=== PATIENT | female | born 1970 | race Caucasian/White ===

== ENCOUNTER 2020-01-02 06:47 | Inpatient (IN) | payer OTHER ==
[2020-01-02] VITALS (14 sets, daily range): BP systolic 122–163; BP diastolic 61–91
[~2020-01-02] VITALS: Ht 170.2 cm; Wt 87.1 kg
[2020-01-02 07:13] LABS: URINE BLOOD 1+ (Negative); URINE CLARITY CLEAR; URINE COLOR YELLOW; URINE GLUCOSE-RANDOM 2+ (Negative); URINE LEUKOCYTES-REFLEX NEGATIVE (Negative); URINE NITRITE-REFLEX NEGATIVE (Negative); URINE PROTEIN TRACE (Negative); URINE SPECIFIC GRAVITY >= 1.030 (1.005-1.030); URINE UROBILINOGEN 0.2 E.U./dl (0.2-1.0)
[2020-01-02 07:15] LABS: ACETEST (KETONE CONFIRMATORY) Large (Negative); ICTOTEST (BILI CONFIRMATORY) Negative (Negative); URINE BILIRUBIN 1+ (Negative); URINE KETONES 3+ (Negative)
[2020-01-02 07:27] LABS: BACTERIA-REFLEX 1-9 Few /HPF (None Seen); CRYSTALS None Seen /LPF (None Seen); HYALINE CASTS 0-3 Few /LPF (None Seen); MUCUS None Seen strn/LPF (None Seen); SQUAMOUS 0-3 Few /LPF (0-3); URINE RBC 3-10 Few /HPF (0-2); URINE WBC-REFLEX 0-5 Rare /HPF (0-5)
[2020-01-02 07:37] LABS: HEMATOCRIT 50.9 % (37.0-47.0); HEMOGLOBIN 16.6 gm/dL (12.0-15.0); MCH 29.8 pg (26.0-34.0); MCHC 32.5 g/dL (28.0-37.0); MCV 91.5 fL (80.0-100.0); NUCLEATED RBCS 0 /100WBC; PLATELET COUNT* 433 thou/uL (150-400); RBC 5.56 mil/uL (4.20-5.00); RDW-CV 12.9 % (10.5-14.5); WBC 20.9 thou/uL (4.0-11.0)
[2020-01-02 08:02] LABS: ALBUMIN 3.8 g/dL (3.4-5.0); CALCIUM 8.6 mg/dL (8.5-10.1); POTASSIUM 3.9 mmol/L (3.5-5.1); TOTAL BILIRUBIN 1.2 mg/dL (<0.1-1.0); TOTAL PROTEIN 8.4 g/dL (6.4-8.2)
[2020-01-02 08:39] LABS: ABSOLUTE LYMPHOCYTES 1.3 thou/uL (0.8-5.3); ABSOLUTE MONOCYTES 1.3 thou/uL (0.0-1.2); ABSOLUTE NEUTROPHILS 18.4 thou/uL (1.6-8.1); PLATELET ESTIMATE ADEQUATE
[2020-01-02 08:54] LABS: BE -19.7 mmol/L (-2 to +3); PCO2 VENOUS 21.8 mmHg (41.0-51.0); PO2 VENOUS 84.8 mmHg (35.0-45.0)
[2020-01-02 10:40] LABS: ABSOLUTE BASOPHILS 0.1 thou/uL (0.0-0.2); ABSOLUTE MONOCYTES 1.7 thou/uL (0.0-1.2); ABSOLUTE NEUTROPHILS 17.1 thou/uL (1.6-8.1); BASOPHILS 0.3 %; HEMATOCRIT 48.6 % (37.0-47.0); HEMOGLOBIN 16.1 gm/dL (12.0-15.0); LYMPHOCYTES 9.6 %; MCH 29.4 pg (26.0-34.0); MCHC 33.2 g/dL (28.0-37.0); MCV 88.5 fL (80.0-100.0); MONOCYTES 8.1 %; MPV 7.6 fl. (7.2-11.1); NUCLEATED RBCS 0 /100WBC; PLATELET COUNT* 370 thou/uL (150-400); RBC 5.49 mil/uL (4.20-5.00); RDW-CV 12.4 % (10.5-14.5); WBC 20.8 thou/uL (4.0-11.0)
[2020-01-02 13:59] LABS: CREATININE 0.9 mg/dL (0.6-1.3); POTASSIUM 3.1 mmol/L (3.5-5.1)
[2020-01-02 14:02] LABS: ALBUMIN 3.1 g/dL (3.4-5.0); MAGNESIUM 2.3 mg/dL (1.8-2.4)
--- NOTE | 2020-01-02 16:32 | NUR ---
RECIEVED PT FROM ER AT 1115H, CONNETED TO OIL AND GAS SUPERINTENDENT. TACHYCARDIA NOTED AND PT WAS DROWSY. ON INSULIN DRIP AT 1IU/HR NOW. PT VOMITED ONCE AND PRN MED GIVEN FOR N/V. INSTRUCTED NOT TO DRINK WATER FOR NOW AND MOUTH WASHED GIVEN.NO RESPIRATORY DISTRESS AND NO PAIN NOTED. PT STATED, SHE'S STILL NOT FELLING WELL. STILL HAVE SORE THROAT PROBABLY DUE TO HER VOMITING FOR DAYS. CONTINUE MONITORING AND TOWARD GOALS.
[2020-01-02 18:15] LABS: CALCIUM 7.7 mg/dL (8.5-10.1); CREATININE 0.9 mg/dL (0.6-1.3)
[2020-01-02 18:18] LABS: ALBUMIN 2.8 g/dL (3.4-5.0); MAGNESIUM 2.5 mg/dL (1.8-2.4); PHOSPHORUS* 1.5 mg/dL (2.5-4.9); POTASSIUM 4.7 mmol/L (3.5-5.1)
[2020-01-02 21:20] LABS: CALCIUM 7.8 mg/dL (8.5-10.1); CREATININE 0.9 mg/dL (0.6-1.3); POTASSIUM 4.2 mmol/L (3.5-5.1)
[2020-01-02 21:23] LABS: ALBUMIN 2.8 g/dL (3.4-5.0); MAGNESIUM 2.5 mg/dL (1.8-2.4); PHOSPHORUS* 1.2 mg/dL (2.5-4.9)
[2020-01-02 23:26] LABS: URINE BILIRUBIN NEGATIVE (Negative); URINE BLOOD TRACE (Negative); URINE CLARITY CLEAR; URINE COLOR YELLOW; URINE GLUCOSE-RANDOM 2+ (Negative); URINE KETONES 3+ (Negative); URINE LEUKOCYTES 1+ (Negative); URINE NITRITE POSITIVE (Negative); URINE PROTEIN 1+ (Negative); URINE UROBILINOGEN 0.2 E.U./dl (0.2-1.0)
[2020-01-02 23:34] LABS: AMP/METHAMP Negative (Negative); BARBITURATES Negative (Negative); BENZODIAZEPINES Negative (Negative); COCAINE Negative (Negative); METHADONE Negative (Negative); OPIATES Negative (Negative); PCP Negative (Negative); THC Negative (Negative)
[2020-01-02 23:41] LABS: BACTERIA >30 Many /HPF (None Seen); COARSE GRANULAR CASTS 0-3 Few /LPF (None Seen); CRYSTALS None Seen /LPF (None Seen); FINE GRANULAR CASTS 0-3 Few /LPF (None Seen); MUCUS 4-6 Moderate strn/LPF (None Seen); SQUAMOUS 0-3 Few /LPF (0-3); URINE WBC >25 Many /HPF (0-5); WBC CLUMPS Few (None Seen)
[2020-01-03] VITALS (14 sets, daily range): BP systolic 112–139; BP diastolic 62–75
[2020-01-03 01:18] LABS: ABSOLUTE BASOPHILS 0.1 thou/uL (0.0-0.2); ABSOLUTE LYMPHOCYTES 1.8 thou/uL (0.8-5.3); ABSOLUTE MONOCYTES 1.7 thou/uL (0.0-1.2); ABSOLUTE NEUTROPHILS 9.5 thou/uL (1.6-8.1); BASOPHILS 0.9 %; LYMPHOCYTES 13.5 %; MCH 29.7 pg (26.0-34.0); MONOCYTES 12.7 %; MPV 7.4 fl. (7.2-11.1); NUCLEATED RBCS 0 /100WBC; POLYS 72.9 %; RDW-CV 12.2 % (10.5-14.5)
[2020-01-03 01:30] LABS: ALBUMIN 2.6 g/dL (3.4-5.0); ANION GAP 15 mmol/L (7-16); BUN 16 mg/dL (7-18); CALCIUM 7.1 mg/dL (8.5-10.1); CHLORIDE 104 mmol/L (98-107); CHOLESTEROL 207 mg/dL (<200); CO2 17 mmol/L (21-32); CREATININE 0.9 mg/dL (0.6-1.3); GLUCOSE 213 mg/dL (70-99); HDL CHOLESTEROL 38 mg/dL (>40); LDL CHOLESTEROL 128 mg/dL (<100); PHOSPHORUS* 2.3 mg/dL (2.5-4.9); POTASSIUM 3.7 mmol/L (3.5-5.1); SODIUM 136 mmol/L (136-145); TC:HDL 5.4 Ratio (Not establshd); TRIGLYCERIDE 208 mg/dL (<150); VLDL 42 mg/dL (<40)
[2020-01-03 01:32] LABS: PLATELET COUNT* 274 thou/uL (150-400)
[2020-01-03 02:12] LABS: SERUM ASSESSMENT CLEAR
--- NOTE | 2020-01-03 06:21 | NUR ---
Pt reports she slept overnight despite frequent BG checks. Pt up to BSC to void, tolerated well. VSS. Remains on insulin gtt, currently at 9 units/hr; BG low 200s with D5 0.45 NS running at 250 ml/hr. No complaints of nausea overnight, but reports she still has sore throat. Will continue to monitor.
--- NOTE | 2020-01-03 12:48 | NUR ---
REPORT CALLED TO CASSIDY IN ICU
--- NOTE | 2020-01-03 13:09 | NUR ---
PT TRANSFERRED TO ROOM 106 AT THIS TIME. REPORT RECEIVED FROM PREVIOUS RN. PT ORIENTED TO ROOM. NO OTHER CONCERNS AT THIS TIME.
--- NOTE | 2020-01-03 16:05 | NUR ---
PT SOMEWHAT PROGRESSING TOWARDS GOALS THIS SHIFT. DKA PROTOCOL DC'D AND INSULIN GTT DC'D. PT ON SSI WITH LONG ACTING INSULIN TO MAINTAIN BLOOD SUGARS. NOT TOLERATING DIET WELL AT THIS TIME. ZOFRAN ADMINISTERED FOR NAUSEA. NO OTHER CONCERNS AT THIS TIME. CLWR. WCTM.
[2020-01-04 02:06] LABS: GLYCOHEMOGLOBIN (HGB A1C) 12.6 % (4.8-5.6)
[2020-01-04 03:37] LABS: ABSOLUTE LYMPHOCYTES 1.4 thou/uL (0.8-5.3); ABSOLUTE MONOCYTES 0.9 thou/uL (0.0-1.2); ABSOLUTE NEUTROPHILS 5.7 thou/uL (1.6-8.1); BASOPHILS 0.2 %; EOSINOPHILS 0.2 %; HEMATOCRIT 37.4 % (37.0-47.0); LYMPHOCYTES 17.8 %; MCH 29.4 pg (26.0-34.0); MCHC 34.7 g/dL (28.0-37.0); MCV 84.6 fL (80.0-100.0); MONOCYTES 11.3 %; MPV 7.5 fl. (7.2-11.1); NUCLEATED RBCS 0 /100WBC; PLATELET COUNT* 224 thou/uL (150-400); POLYS 70.5 %; RBC 4.42 mil/uL (4.20-5.00); RDW-CV 12.4 % (10.5-14.5); WBC 8.1 thou/uL (4.0-11.0)
[2020-01-04 03:59] LABS: ALBUMIN 2.4 g/dL (3.4-5.0); ALKALINE PHOSPHATASE 83 U/L (46-116); ANION GAP 12 mmol/L (7-16); BUN 7 mg/dL (7-18); CALCIUM 7.7 mg/dL (8.5-10.1); CHLORIDE 106 mmol/L (98-107); CO2 23 mmol/L (21-32); CREATININE 0.5 mg/dL (0.6-1.3); GLUCOSE 165 mg/dL (70-99); PHOSPHORUS* 1.3 mg/dL (2.5-4.9); SGOT 12 U/L (15-37); SGPT 15 U/L (30-65); SODIUM 141 mmol/L (136-145); TOTAL BILIRUBIN 0.6 mg/dL (<0.1-1.0); TOTAL PROTEIN 5.8 g/dL (6.4-8.2)
[2020-01-04 04:05] LABS: POTASSIUM 2.9 mmol/L (3.5-5.1)
--- NOTE | 2020-01-04 05:41 | NUR ---
CRITICAL POTASSIUM 2.9 GIVING ORAL SUPPLEMENT TO BE RECHECKED AT 12:15 SUNDAY. SHE WAS ABLE TO SLEEP ALL EVENING. SHE IS ABLE TO GET ONTO BEDSIDE COMMODE. SHE REPORTED HAVING DIFFICULTY SWALLOWING PILLS. TOLERATING CLEAR LIQUIDS WELL. PLAN IS TO CONTINUE ABX FOR UTI AND MONITORING. WILL CONTINUE PLAN OF CARE.
[2020-01-04 08:03] VITALS: BP 125/71
[2020-01-04 17:02] VITALS: BP 141/78
--- NOTE | 2020-01-04 17:30 | NUR ---
PT A&Ox4. VITALS STABLE. IV PATENT, INFUSING. UP STAND BY. REPLACING POTASSIUM. DENIED PAIN. DENIED N/V. FAMILY IN ROOM. TOLERATING FOOD. CALL LIGHT WITHIN REACH. WILL CONTINUE TO MONITOR.
[2020-01-04 20:52] VITALS: BP 131/77
[2020-01-05 04:22] LABS: ABSOLUTE EOSINOPHILS 0.1 thou/uL (0.0-0.7); ABSOLUTE LYMPHOCYTES 1.8 thou/uL (0.8-5.3); ABSOLUTE MONOCYTES 0.9 thou/uL (0.0-1.2); ABSOLUTE NEUTROPHILS 6.4 thou/uL (1.6-8.1); BASOPHILS 0.4 %; EOSINOPHILS 0.7 %; HEMOGLOBIN 12.7 gm/dL (12.0-15.0); LYMPHOCYTES 19.8 %; MCH 29.9 pg (26.0-34.0); MCHC 35.3 g/dL (28.0-37.0); MCV 84.8 fL (80.0-100.0); MONOCYTES 9.4 %; MPV 7.8 fl. (7.2-11.1); NUCLEATED RBCS 0 /100WBC; PLATELET COUNT* 219 thou/uL (150-400); POLYS 69.7 %; RBC 4.24 mil/uL (4.20-5.00); RDW-CV 12.4 % (10.5-14.5); WBC 9.2 thou/uL (4.0-11.0)
[2020-01-05 04:47] LABS: ALBUMIN 2.3 g/dL (3.4-5.0); CALCIUM 8.1 mg/dL (8.5-10.1); CREATININE 0.3 mg/dL (0.6-1.3); POTASSIUM 3.2 mmol/L (3.5-5.1); TOTAL BILIRUBIN 0.5 mg/dL (<0.1-1.0); TOTAL PROTEIN 5.8 g/dL (6.4-8.2)
[2020-01-05 04:51] LABS: CALCIUM 8.1 mg/dL (8.5-10.1); CREATININE 0.3 mg/dL (0.6-1.3); POTASSIUM 3.2 mmol/L (3.5-5.1)
[2020-01-05 04:58] LABS: MAGNESIUM 1.8 mg/dL (1.8-2.4); PHOSPHORUS* 2.1 mg/dL (2.5-4.9)
--- NOTE | 2020-01-05 05:37 | NUR ---
RECEIVED 2 DOSES OF POTASSIUM IV AND FLUIDS ALL SHIFT. DID NOT REPORT ANY PAIN OR NAUSEA OR WORSENING OF CONDITION. POTASSIUM AT 3.2 THIS MORNING.
[2020-01-05 07:58] VITALS: BP 148/84
[2020-01-05] MEDS ORDERED: LANTUS SUBQ (10:18)
[2020-01-05] MEDS ORDERED: HUMALOG100 UNIT/1 SUBQ (10:18)
[2020-01-05] MEDS ORDERED: KLOR-CON M2020 MEQ PO (10:19)
--- NOTE | 2020-01-05 13:18 | NUR ---
PT.UP IN CHAIR EATING LUNCH. SHE SAID SHE LIVES WITH HER . NO USE OF DME. SHE MADE AN APPT.WITH A ,FROM [facility], IN [place] FOR NEXT SUNDAY. SHE SAID SHE IS INDEPENDENT AT HOME. SHE SAID SHE HAS NEVER HAD PROBLEMS WITH HER BLOOD SUGAR BEFORE. HER DAUGHTER IS AN RN. PT.DID NOT WANT HER NURSE ,HERE, TO TEACH HER ABOUT INSULIN INJECTIONS. SHE SAID SHE WILL HAVE HER DAUGHTER TEACH HER. ANXIOUS FOR DISCHARGE TODAY.
[2020-01-05 13:22] VITALS: BP 148/84
[2020-01-05] MEDS ORDERED: PROTONIX40 M2 PO (13:31)
[2020-01-05] MEDS ORDERED: CARAFATE1 GM PO (13:32)
--- NOTE | 2020-01-05 15:50 | NUR ---
PT DISCHARGED AT ABOUT 1524 TO HOME BY WHEELCHAIR WITH NURSING STAFF AND . IV OUT. POTASSIUM 4.0. PAPER SCRIPTS GIVEN. PERESONAL ITEMS SENT WITH PT.
--- NOTE | 2020-01-06 07:57 | CON ---
[address] [address] CONSULTATION Name: KEVIN MCKEON Room: [address]R.#: [id number] Admission: 01/02/20 Attend Phys: Sylvia Parks Discharge: 01/05/20 Date of : 70 Report #: [id number] THIS REPORT FOR: //name// cc: IESHA Mclean family physician/PCP IESHA - Caridad family physician/PCP ~ THIS REPORT FOR: //name// CC: IESHA physician/PCP Sylvia Mejia DATE OF SERVICE: 01/05/2020 INFECTIOUS DISEASE CONSULTATION ATTENDING PHYSICIAN: Theo Montague MD REASON FOR EVALUATION: Lower lip ulcer, question due to herpes. HISTORY OF PRESENT ILLNESS: Chart reviewed, the patient examined. The patient is a 49-year-old woman with known history of polycystic ovary who presented to the Emergency Room on 01/02 with nausea, emesis, was found to have markedly elevated blood sugars greater than 550. She was in a state of diabetic ketoacidosis. She was hydrated and treated with insulin. She had developed a lip lesion which she attributed to vomiting on repeated basis, stomach context. She noted that she had a sore throat as well. She states actually this has been better. On questioning, she does admit to history of cold sores. Denies any significant pulmonary or gastrointestinal related complaints. ALLERGIES: None known. CURRENT MEDICATIONS: Include sulfate, insulin glargine, ceftriaxone, insulin lispro, pantoprazole, p.r.n. ondansetron and acetaminophen. PAST MEDICAL HISTORY: History of polycystic ovary disease, x 3, pancreatitis, cholecystectomy. SOCIAL HISTORY: Nonsmoker, no ethanol, no illicit drug use. FAMILY HISTORY: Noncontributory. REVIEW OF SYSTEMS: Otherwise, unremarkable 10-point review of systems with exception of the above. PHYSICAL EXAMINATION: GENERAL: She is alert, cooperative, appropriate. She appears in mild distress, [place] [address] CONSULTATION Name: KEVIN MCKEON Room: [address]#: [id number] Admission: 01/02/20 Attend Phys: Sylvia echevarria sara Alfaro Discharge: 01/05/20 Date of : 70 Report #: [id number] VITAL SIGNS: Temperature 98.5, pulse 85, respirations 16 and blood pressure 148/84. SKIN: Warm, dry. HEENT: Normocephalic. Extraocular muscles intact. Lower lip has an ulcerative lesion that is mild degree of inflammation associated with it. There does not seem to be any buccal lesions, no overt tongue, oropharyngeal lesions noted. NECK: Supple. LUNGS: Generally clear to auscultation. HEART: Regular. ABDOMEN: Soft, nontender. EXTREMITIES: No cyanosis. GENITOURINARY: Deferred. RECTAL: Deferred. LABORATORY DATA: Electrolytes: Sodium 143, potassium 3.2, chloride 107, bicarbonate 26, BUN and creatinine 4 and 0.3, anion gap of 10, estimated GFR of 236. LFTs otherwise unremarkable. Albumin of 2.3. Total protein 5.8. Prealbumin of 12.9. CBC: White count of 9.2, H and H 12.7 and 36.0, platelets of 219. CBC: White count of 8.1, H and H 13.0 and 37.4, platelets of 224. ASSESSMENT AND PLAN: Lower lip lesion, whether it is injury due to chemical exposure or potentially herpes simplex type 1. At this point, it seems to be getting better. She has had some topical lip balm. I told her see how she does. I suspect it will heal once the immune system is improved. Certainly, you will give me a call, number on the discharge. I do not think there is any reason from infectious standpoint to do any more diagnostic testing and ____ would be available as needed. <ELECTRONICALLY SIGNED> By: Vicente Escobar MD 01/06/20 0757 [id number] Escobar MD /nt
--- NOTE | 2020-01-07 13:55 | EKG ---
[place] [address] ELECTROCARDIOGRAM REPORT Name: FREDISKEVIN BREWER Room: [address] [place] .R.#: [id number] Admission: 01/02/20 Attend Phys: Sylvia rey Sa Discharge: 01/05/20 Date of : 70 Date of Service: 01/02/20 0736 Report #: [id number] THIS REPORT FOR: cc: IESHA - Caridad family physician/PCP IESHA - No family physician/PCP Deangelo Schulte MD [facility] THIS REPORT FOR: //name// [facility] ED Test Date: 2020-01-02 Test Time: 07:36:35 Pat Name: KEVIN MCKEON Department: Room: [facility] Gender: F Clinical Operations Specialist: JULIOCESAR : 1970 Requested By: Terrance Kwan Order Number: [id number] MD: Deangelo Schulte Measurements Intervals [place] Rate: 121 P: 56 VA: 126 QRS: 67 QRSD: 90 T: 55 QT: 359 QTc: 510 Interpretive Statements Sinus tachycardia Probable left atrial enlargement Borderline T wave abnormalities Borderline prolonged QT interval No previous ECG available for comparison Electronically Signed On 01-02-2020 10:46:30 ACTUARIAL ASSISTANT by Deangelo Schulte [email or web address] <ELECTRONICALLY SIGNED> By: Deangelo Schulte MD, [facility] 01/02/20 1046 5 Deangelo Schulte MD, [facility] /EPI
== END 2020-01-05 15:52 | disposition home or self-care (01) | DRG 637 ==
LOC: M.ERS 06:47 → M.ORTHSURG 08:18 → M.ICU 08:18 → M.TBA-ER 08:18 → M.ICU 10:35 → M.ORTHSURG 01-03 12:56
PROVIDERS: Emergency Medicine Emergency Medical Services; Internal Medicine; ADMIT Family Medicine
DX: E11.10 Type 2 diabetes mellitus with ketoacidosis without coma (principal); E43 Unspecified severe protein-calorie malnutrition; N39.0 Urinary tract infection, site not specified; E87.2 Acidosis; K76.0 Fatty (change of) liver, not elsewhere classified; D72.0 Genetic anomalies of leukocytes; I10 Essential (primary) hypertension; K13.0 Diseases of lips; E28.2 Polycystic ovarian syndrome; E86.0 Dehydration; R74.8 Abnormal levels of other serum enzymes; Z90.49 Acquired absence of other specified parts of digestive tract; Z86.32 Personal history of gestational diabetes; Z83.2 Family history of diseases of the blood and blood-forming organs and certain disorders involving the immune mechanism; Z68.30 Body mass index [BMI] 30.0-30.9, adult; Z79.4 Long term (current) use of insulin; Z79.899 Other long term (current) drug therapy